=== PATIENT | female | born 1985 | race Caucasian/White ===

== ENCOUNTER 2025-07-25 14:20 | Inpatient (IN) | payer BC ==
[~2025-07-25] VITALS: Ht 165.1 cm; Wt 95.0 kg
[2025-07-25 14:20] VITALS: BP 139/82; PULSE 54; RESP 14; TEMP 97.3; O2SAT 98
[2025-07-25] MEDS ORDERED: magnesium hydroxide 30ml (MOM) UD suspension PO PRN (14:45)
[2025-07-25] MEDS ORDERED: loperamide 2mg capsule PO PRN (14:45)
[2025-07-25] MEDS ORDERED: mag hydrox/Alum hydrox/simeth 30ml oral suspension PO PRN (14:45)
[2025-07-25] MEDS ORDERED: NICOTINE POLACRILEX 2 MG LOZENGE BC PRN (14:45)
[2025-07-25] MEDS: nicotine 21mg patch - 24 hr TD SCH (15:43)
[2025-07-25 16:50] VITALS: RESP 16; O2SAT 98
[2025-07-25] MEDS ORDERED: FLUO-12 PO (17:40)
[2025-07-25] MEDS ORDERED: TRAZ-256 PO (17:41)
[2025-07-25] MEDS ORDERED: Albuterol IH ×2 (18:02→18:06)
[2025-07-25] MEDS ORDERED: FLUT1DIS20 INH (18:03)
[2025-07-25 19:00] VITALS: RESP 18; O2SAT 100
[2025-07-25] MEDS ORDERED: CYCL-920 PO (19:03)
[2025-07-25] MEDS ORDERED: ONDA-103 PO (19:03)
[2025-07-25] MEDS ORDERED: ALBU8HFA INH (19:10)
[2025-07-25] MEDS ORDERED: FLUT1BLS7 INH (19:10)
[2025-07-25] MEDS ORDERED: ondansetron 4mg rapidly disintigrating tab PO PRN (19:30)
[2025-07-25 20:00] VITALS: BP 121/86; PULSE 65; RESP 18; TEMP 98.7; O2SAT 100
[2025-07-25] MEDS: budesonide 0.5mg/2ml UD nebule IH SCH (20:00)
[2025-07-25] MEDS ORDERED: albuterol 2.5 MG/3 ML nebule NEB PRN (20:00)
[2025-07-25] MEDS: albuterol 2.5 MG/3 ML nebule NEB PRN (21:47)
[2025-07-25 21:52] VITALS: PULSE 99; RESP 12; O2SAT 99
[2025-07-25 21:54] VITALS: PULSE 78; RESP 12
[2025-07-26 07:00] VITALS: RESP 12; O2SAT 98
[2025-07-26 08:00] VITALS: BP 125/79; PULSE 106; RESP 16; TEMP 97.7; O2SAT 96
[2025-07-26] MEDS: multivitamins, therapeutics tablet PO SCH (08:06)
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
--- NOTE | 2025-07-26 08:55 | ELECTROCARDIOGRAPH REPORT ---
[facility] Test Date: 2025-07-26 Test Time: 08:53:07 Pat Name: COMFORT VARELA Department: [facility]-ADULT Patient ID: [id number] Room: 331 A Gender: F Cat Breeder: RENAN : 1985 Requested By: LAURIE KU Order Number: [id number] Reading MD: Dr. JODIE Clayton Measurements Intervals [place] Rate: 71 P: 58 MT: 148 QRS: 116 QRSD: 100 T: 55 QT: 402 QTc: 437 Interpretive Statements Sinus rhythm Consider right ventricular hypertrophy Electronically Signed On 07-26-2025 13:22:[address] JODIE Clayton Please click the below link to view image of tracing.
[2025-07-26 10:22] LABS: MEAN PLATELET VOLUME 8.4 FL (7.4-10.4); RED CELL DISTRIBUTION WIDTH 13.3 % (11.5-14.5)
[2025-07-26 10:46] LABS: CHOL/HDL RATIO 2.5 (0.00-4.99); CREATININE 0.71 MG/DL (0.40-0.90); LDL CHOLESTEROL 77 MG/DL (50-100); TOTAL CARBON DIOXIDE 25.2 MMOL/L (24-32); eCRCL 96 ML/MIN; eGFR > 90 ML/MIN
[2025-07-26 13:30] VITALS: RESP 16; O2SAT 98
[2025-07-26] MEDS: propranolol 10mg tablet PO PRN (16:05)
[2025-07-26 19:00] VITALS: BP 115/71; PULSE 60; RESP 18; TEMP 96.5; O2SAT 99
[2025-07-26 20:29] VITALS: PULSE 67; RESP 14; O2SAT 97
[2025-07-26 20:35] VITALS: PULSE 64; RESP 16
[2025-07-27] VITALS (7 sets, daily range): BP systolic 108–113; BP diastolic 63–68; PULSE 58–73; RESP 14–17; TEMP 97–97.5; O2SAT 96–98
[2025-07-27 08:39] LABS: INR 1.1 INR
[2025-07-27 08:56] LABS: PHOSPHORUS 3.9 MG/DL (2.3-4.5)
[2025-07-27 09:22] LABS: HIV ANTIBODY 1&2 RAPID NON-REACTIVE (Neg)
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
[2025-07-28 08:00] VITALS: BP 104/64; PULSE 53; RESP 16; TEMP 98.1; O2SAT 99
[2025-07-28 09:03] VITALS: PULSE 68; RESP 14; O2SAT 97
[2025-07-28 09:08] VITALS: PULSE 68; RESP 14
[2025-07-28 09:19] LABS: INR 1.1 INR
[2025-07-28] MEDS ORDERED: MULT-25 PO (09:24)
[2025-07-28] MEDS ORDERED: FLUO-167 PO (09:24)
[2025-07-28] MEDS ORDERED: LAMO-24 PO (09:24)
[2025-07-28] MEDS ORDERED: TRAZ-256 PO (09:24)
[2025-07-28] MEDS ORDERED: PROP10TA10 PO (09:24)
[2025-07-28 09:25] LABS: PHOSPHORUS 3.3 MG/DL (2.3-4.5)
--- NOTE | 2025-07-28 09:26 | DISCHARGE SUMMARY ---
Discharge Summary Providers to CC ~ Discharge Summary Admission Diagnosis: MDD, PTSD, Alcohol Use disorder, Suicidal Ideation Hospital Course DATE OF ADMISSION: DATE OF DISCHARGE: *Problems/Diagnosis: (1) Alcohol use disorder (2) PTSD (post-traumatic stress disorder) (3) MDD (major depressive disorder), recurrent episode, severe RHONDA BOYLE DNP Jul 28, 2025 09:25
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
== END 2025-07-28 10:50 | disposition home or self-care (01) | DRG 885 ==
LOC: ADULT MH 14:20 → UNDOADMIN 14:34 → ADULT MH 14:34
PROVIDERS: ADMIT Psychiatry & Neurology Psychiatry; ATTEND Psychiatry & Neurology Psychiatry
PROC: GZHZZZZ Group Psychotherapy (ICD-10-PCS; principal; 2025-07-26)
DX: F33.2 Major depressive disorder, recurrent severe without psychotic features (principal); R45.851 Suicidal ideations; F17.200 Nicotine dependence, unspecified, uncomplicated; F43.10 Post-traumatic stress disorder, unspecified; F41.9 Anxiety disorder, unspecified; F10.10 Alcohol abuse, uncomplicated; Z88.5 Allergy status to narcotic agent; Z88.8 Allergy status to other drugs, medicaments and biological substances
CPT/HCPCS: 36415; 80053; 80061; 82150; 82248; 83036; 83690; 83735; 84100; 84443; 85025; 85610; 86592; 86703; 87081; 93005; 94640; 94760; 99285